=== PATIENT | female | born 1980 | race African-American/Black ===

== ENCOUNTER 2019-05-18 00:20 | Emergency (ER) | payer OTHER ==
[~2019-05-18] VITALS: Ht 165.1 cm; Wt 127.0 kg
[2019-05-18] MEDS ORDERED: HYDROCODONE/ACETAMINOPHEN 5/325MG TABLET PO ONE (01:15)
[2019-05-18] MEDS ORDERED: FLUORESCEIN SODIUM 1MG/STRIP LEFTEYE ONE (01:15)
[2019-05-18] MEDS ORDERED: TETRACAINE 0.5% OPHTH DROPS 4ML LEFTEYE ONE (01:15)
[2019-05-18] MEDS ORDERED: ONDANSETRON 4MG ODT PO ONE (02:15)
[2019-05-18 05:09] VITALS: BP 136/82
== END 2019-05-18 05:09 | disposition home or self-care (01) ==
LOC: ER 00:44
DX: S02.82XA Fracture of other specified skull and facial bones, left side, initial encounter for closed fracture (principal); H57.12 Ocular pain, left eye; J45.909 Unspecified asthma, uncomplicated; Y08.89XA Assault by other specified means, initial encounter; Y93.89 Activity, other specified; Y92.89 Other specified places as the place of occurrence of the external cause; Y99.8 Other external cause status
CPT/HCPCS: 70486; 99284; Q0162